=== PATIENT | male | born 2005 | race Caucasian/White ===

== ENCOUNTER 2024-07-19 23:18 | Emergency (ER) | payer MEDICAID ==
[~2024-07-19] VITALS: Ht 185.4 cm; Wt 85.3 kg
[2024-07-19 23:50] VITALS: TEMP 37; O2SAT 100
[2024-07-20] MEDS: SODIUM CHLORIDE 0.9% 1,000 ML IV ONE (00:23)
[2024-07-20] MEDS: ONDANSETRON HCL 4MG/2ML INJ IV STA (00:23)
[2024-07-20] MEDS: MAGNESIUM/ALUMINUM HYDROXIDE/SIMETHICONE 30ML UDC PO STA (00:23)
[2024-07-20] MEDS: PANTOPRAZOLE SODIUM 40 MG/VIAL IV STA (00:23)
[2024-07-20 00:26] LABS: BASOPHILS % 0.5 % (0.0-2.0); DIFFERENTIAL COMMENT 0; EOSINOPHILS % 1.4 % (0.0-5.0); HEMATOCRIT. 49.4 % (42.0-52.0); HEMOGLOBIN. 17.5 g/dL (14.0-18.0); LYMPHOCYTES % 28.6 % (20.0-50.0); MEAN CORPUSCULAR HEMOGLOBIN 31.5 pg (28.0-32.0); MEAN CORPUSCULAR HGB CONC 35.4 g/dL (31.0-37.0); MEAN CORPUSCULAR VOLUME 89.1 fL (80.0-94.0); MONOCYTES % 11.6 % (2.0-8.0); NEUTROPHILS % 57.9 % (40.0-76.0); PLATELET 310 x1000/uL (130-400); RED BLOOD CELL COUNT 5.55 mill/uL (4.7-6.1); RED CELL DISTRIBUTION WIDTH 12.7 % (11.6-14.6); WHITE BLOOD COUNT 7.2 x1000/uL (4.5-11.0)
[2024-07-20 00:33] LABS: CARBON DIOXIDE 25 mEq/L (21-32); CHLORIDE 106 mEq/L (98-107); POTASSIUM 4.4 mEq/L (3.5-5.1); SODIUM 141 mEq/L (136-145)
[2024-07-20 00:35] LABS: PROTHROMBIN TIME 10.9 sec (9.6-11.0)
[2024-07-20 00:38] LABS: GLUCOSE 89 mg/dL (70-105)
[2024-07-20 00:39] LABS: UREA NITROGEN BLOOD 11 mg/dL (9-23)
[2024-07-20 00:40] LABS: ALANINE AMINOTRANSFERASE 21 IU/L (10-49); ALBUMIN 5.4 g/dL (3.2-4.8); ASPARTATE AMINOTRANSFERASE 20 IU/L (<34)
[2024-07-20 00:41] LABS: BILIRUBIN DIRECT 0.1 mg/dL (<=3.0); BILIRUBIN TOTAL 0.4 mg/dL (0.1-1.0); PROTEIN TOTAL 8.5 g/dL (6.0-8.3)
[2024-07-20 01:40] VITALS: BP 134/70; PULSE 63; RESP 18; O2SAT 99
== END 2024-07-20 01:41 | disposition home or self-care (01) ==
LOC: ER 23:18
DX: K92.2 Gastrointestinal hemorrhage, unspecified (principal); K59.00 Constipation, unspecified; R10.9 Unspecified abdominal pain; J45.909 Unspecified asthma, uncomplicated
CPT/HCPCS: 99284; 96374; 71045; 96361; 96375; 80076; 80048; 83690; 85025; 85610; 36415; 74018; 93005; J2405; J2470; J7030